=== PATIENT | female | born 1990 | race Caucasian/White ===

== ENCOUNTER 2019-08-14 01:36 | Emergency (ER) | payer OTHER ==
[~2019-08-14] VITALS: Ht 157.5 cm; Wt 65.8 kg
[~2019-08-14 01:36] MED LIST: BIRTH CONTROL PILLS; HYDACE5 PO; METR500 PO; METR70GEL VAG; ONDA8ODT MM; RXCLIN PO; RXHYDACE PO; RXONDA4ODT MM
[2019-08-14 02:58] LABS: Source, Urine Clean Catch
[2019-08-14 03:00] LABS: Bilirubin, Urine Neg (Neg); Blood, Urine 5+ (Neg); Glucose Qualitative, Urine Neg (Neg); Ketones, Urine Neg (Neg); Leukocyte Esterase, Urine 3+ (Neg); Nitrite, Urine Pos (Neg); Protein, Urine 3+ (Neg); Urobilinogen, Urine 1+ (Normal)
[2019-08-14 03:44] LABS: Appearance, Urine Cloudy (Clear); Bacteria Many /hpf; Color, Urine Yellow (P-Yellow); Red Blood Cells, Urine 50-100 /hpf (0-2); Squamous Epithelial Cells Few /hpf (Few); White Blood Cells, Urine TNTC /hpf (0-5)
[2019-08-14] MEDS ORDERED: Keflex500 MG PO (03:51)
== END 2019-08-14 04:15 | disposition home or self-care (01) ==
LOC: ER 01:36
PROVIDERS: Emergency Medicine
DX: N39.0 Urinary tract infection, site not specified (principal); Z88.0 Allergy status to penicillin; Z88.5 Allergy status to narcotic agent
CPT/HCPCS: 81001; 81025; 87077; 87086; 87186; 99283; A9270-GY